=== PATIENT | female | born 1990 | race Two or more races ===

== ENCOUNTER 2019-10-02 16:00 | Emergency (ER) | payer MEDICAID ==
[~2019-10-02] VITALS: Ht 162.6 cm; Wt 61.2 kg
[2019-10-02 16:07] VITALS: BP 121/77
--- NOTE | 2019-10-02 16:31 | NUR ---
Patient discharged to home in stable condition. Written and verbal after care instructions given. Patient verbalizes understanding of instruction.
== END 2019-10-02 16:32 | disposition home or self-care (01) ==
LOC: ER 16:07
DX: M25.511 Pain in right shoulder (principal); M25.512 Pain in left shoulder; M54.2 Cervicalgia